=== PATIENT | male | born 1995 | race Caucasian/White ===

== ENCOUNTER 2018-10-30 21:02 | Emergency (ER) | payer OTHER ==
[~2018-10-30] VITALS: Ht 182.9 cm; Wt 70.5 kg
[~2018-10-30 21:02] MED LIST: NO HOME MEDICATIONS
[2018-10-30 21:10] VITALS: BP 118/80; PULSE 79; TEMP 98.2
== END 2018-10-30 22:56 | disposition left against medical advice (07) ==
LOC: COL.ER 21:02
DX: R11.10 Vomiting, unspecified (principal)

== ENCOUNTER → 2020-02-19 | Outpatient (CLI) | payer OTHER, BC | LOC: ZCOL.LAB 15:41 | DX: U07.1 COVID-19 (principal) ==